=== PATIENT | female | born 1975 | race American Indian/Alaskan Native ===

== ENCOUNTER 2017-11-04 22:21 | Emergency (ER) | payer OTHER ==
[2017-11-04] MEDS ORDERED: Sodium Chloride 0.9% 10 ML Syringe FLUSH PRN (23:00)
[2017-11-04] MEDS ORDERED: Sodium Chloride 0.9% 1,000 ML IV STA (23:00)
[2017-11-04] MEDS ORDERED: Ondansetron 4 MG/2 ML SDV IVPUSH ONE (23:00)
[2017-11-04] MEDS ORDERED: Albuterol/Ipratropium 3.0-0.5 MG/3 ML Neb Soln NEB ONE (23:02)
--- NOTE | 2017-11-04 23:07 | EDM.PDOC ---
ED HPI GENERAL MEDICAL PROBLEM - General Chief Complaint: Abdominal Pain Stated Complaint: RIGHT SIDE BACK PAIN/ABDOMINAL PAIN Time Seen by Provider: 11/04/17 22:53 Source of Information: Reports: Patient History Limitations: Reports: No Limitations - History of Present Illness INITIAL COMMENTS - FREE TEXT/NARRATIVE: The patient presents with a cough, fever, and epigastric pain. This started a few days ago with a cough and fever. She was seen in [place] and diagnosed with bronchitis and she was not given any prescriptions. She has continued to cough and now she has epigastric pain with nausea and vomiting. She also has bilateral flank pain. She had gastric bypass back in 2007. She has no gallbladder or appendix. She has no dysuria or hematuria. Onset: Gradual Duration: Day(s): Location: Reports: Abdomen Quality: Reports: Sharp Severity: Moderate Improves with: Reports: None Worsens with: Reports: None Associated Symptoms: Reports: Cough, Fever/Chills, Nausea/Vomiting. Denies: Headaches, Shortness of Breath Epigastric Pain Score (Numeric/FACES): 7 - Related Data Allergies Allergy/AdvReac Type Severity Reaction Status Date / Time amoxicillin Allergy Itching Verified 11/04/17 22:34 avocado Allergy Swollen Verified 11/04/17 22:34 Eyes Home Meds: Home Meds levETIRAcetam [Keppra] 500 mg PO BID 11/04/17 [History] Azithromycin [IJD: Azithromycin] 250 mg PO DAILY #4 tab 11/05/17 [Rx] Codeine/Promethazine [Phenergan with Codeine] 5 - 10 ml PO Q6HR PRN #300 ml [Rx] Past Medical History - Past Surgical History GI Surgical History: Reports: Appendectomy, Cholecystectomy Other GI Surgeries/Procedures: gastric bypass Social & Family History - Tobacco Use Smoking Status *Q: Never Smoker Second Hand Smoke Exposure: No - Caffeine Use Caffeine Use: Reports: Coffee - Recreational Drug Use Recreational Drug Use: No ED ROS GENERAL - Review of Systems Review Of Systems: See Below Constitutional: Reports: Fever, Chills HEENT: Reports: No Symptoms Respiratory: Reports: Shortness of Breath, Cough Cardiovascular: Reports: No Symptoms Endocrine: Reports: No Symptoms GI/Abdominal: Reports: Abdominal Pain, Diarrhea (once), Nausea, Vomiting : Reports: No Symptoms Musculoskeletal: Reports: No Symptoms ED EXAM, GI/ABD - Physical Exam Exam: See Below Exam Limited By: No Limitations General Appearance: Alert, No Apparent Distress Ears: Normal External Exam Nose: Normal Inspection Head: Atraumatic, Normocephalic Neck: Normal Inspection Respiratory/Chest: No Respiratory Distress, Lungs Clear, Normal Breath Sounds, Decreased Breath Sounds Cardiovascular: Regular Rate, Rhythm, No Edema, No Murmur GI/Abdominal Exam: Soft, No Organomegaly, No Mass, Tender (Moderate to the epigastric region) Back Exam: Normal Inspection Extremities: Normal Inspection Course - Vital Signs Last Recorded V/S: Last Vital Signs Temp 97.3 F 11/04/17 22:30 Pulse 70 11/04/17 22:30 Resp 22 H 11/04/17 22:30 BP 135/72 11/04/17 22:30 Pulse Ox 96 11/04/17 22:30 - Orders/Labs/Meds Orders: Active Orders 24 hr Category Date Time Status Peripheral IV Care [RC] . DIRECTED Care 11/04/17 23:00 Active RT Aerosol Therapy [RC] ASDIRECTED Care 11/04/17 23:02 Active Abdomen Pelvis w Cont [CT] Stat Exams 11/04/17 23:00 Taken Chest 2V [CR] Stat Exams 11/04/17 23:00 Taken UA W/MICROSCOPIC [URIN] Stat Lab 11/04/17 23:18 Ordered Sodium Chloride 0.9% [Saline Flush] Med 11/04/17 23:00 Active 10 ml FLUSH ASDIRECTED PRN ED Antiemetic Medication Reflex [OM.PC] Stat Oth 11/04/17 23:00 Ordered Peripheral IV Insertion Adult [OM.PC] Stat Oth 11/04/17 23:00 Ordered Medication Orders Sodium Chloride (Saline Flush) 10 ml FLUSH ASDIRECTED PRN PRN Reason: Keep Vein Open Last Admin: 11/04/17 23:17 Dose: 10 ml Labs: Laboratory Tests 11/04/17 11/04/17 11/04/17 Range/Units 23:18 23:18 23:18 WBC 5.24 (3.98-10.04) K/mm3 RBC 4.50 (3.98-5.22) M/mm3 Hgb 13.7 (11.2-15.7) gm/L Hct 40.3 (34.1-44.9) % MCV 89.6 (79.4-94.8) fl MCH 30.4 (25.6-32.2) pg MCHC 34.0 (32.2-35.5) g/dl RDW Std Deviation 41.6 (36.4-46.3) fL Plt Count 353 (182-369) K/mm3 MPV 9.3 L (9.4-12.3) fl Neut % (Auto) 73.1 H (34.0-71.1) % Lymph % (Auto) 19.8 (19.3-51.7) % [place] % (Auto) 5.9 (4.7-12.5) % Eos % (Auto) 0.6 L (0.7-5.8) Baso % (Auto) 0.4 (0.1-1.2) % Neut # (Auto) 3.83 (1.56-6.13) K/mm3 Lymph # (Auto) 1.04 L (1.18-3.74) K/mm3 [place] # (Auto) 0.31 (0.24-0.36) K/mm3 Eos # (Auto) 0.03 L (0.04-0.36) K/mm3 Baso # (Auto) 0.02 (0.01-0.08) K/mm3 Sodium 140 (136-145) mEq/L Potassium 3.3 L (3.5-5.1) mEq/L Chloride 106 (98-107) mEq/L Carbon Dioxide 28 (21-32) mEq/L Anion Gap 9.3 (5-15) BUN 11 (7-18) mg/dL Creatinine 0.8 (0.55-1.02) mg/dL Est Cr Clr Drug Dosing 81.59 mL/min Estimated GFR (MDRD) > 60 (>60) mL/min BUN/Creatinine Ratio 13.8 L (14-18) Glucose 107 H (74-106) mg/dL Calcium 8.7 (8.5-10.1) mg/dL Total Bilirubin 0.3 (0.2-1.0) mg/dL AST 20 (15-37) U/L ALT 18 (14-59) U/L Alkaline Phosphatase 95 (46-116) U/L Total Protein 7.3 (6.4-8.2) g/dl Albumin 3.5 (3.4-5.0) g/dl Globulin 3.8 gm/dL Albumin/Globulin Ratio 0.9 L (1-2) Lipase 164 (73-393) U/L HCG, Qual (NEGATIVE) Urine Color Yellow (Yellow) Urine Appearance Clear (Clear) Urine pH 5.5 (5.0-8.0) Ur Specific [place] > or = 1.030 (1.005-1.030) Urine Protein 1+ H (Negative) Urine Glucose (UA) Negative (Negative) Urine Ketones 2+ H (Negative) Urine Occult Blood Negative (Negative) Urine Nitrite Negative (Negative) Urine Bilirubin 1+ H (Negative) Urine Urobilinogen 1.0 (0.2-1.0) Ur Leukocyte Esterase Negative (Negative) Urine RBC 0-5 (0-5) /hpf Urine WBC 0-5 (0-5) /hpf Ur Epithelial Cells 0-5 (0-5) /hpf Urine Bacteria Few (FEW) /hpf Urine Mucus Many H (FEW) /hpf 11/04/17 Range/Units 23:18 WBC (3.98-10.04) K/mm3 RBC (3.98-5.22) M/mm3 Hgb (11.2-15.7) gm/L Hct (34.1-44.9) % MCV (79.4-94.8) fl MCH (25.6-32.2) pg MCHC (32.2-35.5) g/dl RDW Std Deviation (36.4-46.3) fL Plt Count (182-369) K/mm3 MPV (9.4-12.3) fl Neut % (Auto) (34.0-71.1) % Lymph % (Auto) (19.3-51.7) % [place] % (Auto) (4.7-12.5) % Eos % (Auto) (0.7-5.8) Baso % (Auto) (0.1-1.2) % Neut # (Auto) (1.56-6.13) K/mm3 Lymph # (Auto) (1.18-3.74) K/mm3 [place] # (Auto) (0.24-0.36) K/mm3 Eos # (Auto) (0.04-0.36) K/mm3 Baso # (Auto) (0.01-0.08) K/mm3 Sodium (136-145) mEq/L Potassium (3.5-5.1) mEq/L Chloride (98-107) mEq/L Carbon Dioxide (21-32) mEq/L Anion Gap (5-15) BUN (7-18) mg/dL Creatinine (0.55-1.02) mg/dL Est Cr Clr Drug Dosing mL/min Estimated GFR (MDRD) (>60) mL/min BUN/Creatinine Ratio (14-18) Glucose (74-106) mg/dL Calcium (8.5-10.1) mg/dL Total Bilirubin (0.2-1.0) mg/dL AST (15-37) U/L ALT (14-59) U/L Alkaline Phosphatase (46-116) U/L Total Protein (6.4-8.2) g/dl Albumin (3.4-5.0) g/dl Globulin gm/dL Albumin/Globulin Ratio (1-2) Lipase (73-393) U/L HCG, Qual Negative (NEGATIVE) Urine Color (Yellow) Urine Appearance (Clear) Urine pH (5.0-8.0) Ur Specific [place] (1.005-1.030) Urine Protein (Negative) Urine Glucose (UA) (Negative) Urine Ketones (Negative) Urine Occult Blood (Negative) Urine Nitrite (Negative) Urine Bilirubin (Negative) Urine Urobilinogen (0.2-1.0) Ur Leukocyte Esterase (Negative) Urine RBC (0-5) /hpf Urine WBC (0-5) /hpf Ur Epithelial Cells (0-5) /hpf Urine Bacteria (FEW) /hpf Urine Mucus (FEW) /hpf Meds: Medications Generic Name Dose Route Start Last Admin Trade Name Freq PRN Reason Stop Dose Admin Sodium Chloride 10 ml 11/04/17 23:00 11/04/17 23:17 Saline Flush FLUSH 10 ml ASDIRECTED PRN Administration Keep Vein Open Discontinued Medications Generic Name Dose Route Start Last Admin Trade Name Freq PRN Reason Stop Dose Admin Albuterol/Ipratropium 3 ml 11/04/17 23:02 11/04/17 23:22 Duoneb 3.0-0.5 Mg/3 Ml NEB 11/04/17 23:03 3 ml ONETIME ONE Administration Sodium Chloride 1,000 mls @ 1,000 mls/hr 11/04/17 23:00 11/04/17 23:17 Normal Saline IV 11/04/17 23:59 1,000 mls/hr .BOLUS STA Administration Ondansetron HCl 4 mg 11/04/17 23:00 11/04/17 23:17 Zofran IVPUSH 11/04/17 23:01 4 mg ONETIME ONE Administration - Re-Assessments/Exams Free Text/Narrative Re-Assessment/Exam: 11/04/17 23:06 I ordered an IV NS 1L bolus, zofran 4mg IV, duoneb, labs, UA, CT of the abdomen and pelvis and CXR. 11/05/17 01:10 Her CXR does not show any infiltrates. Her CBC looks good. Her CMP shows a low K at 3.3. Her HCG is negative. Her lipase is negative. Her UA does not show any UTI. I am waiting for the CT report. 11/05/17 01:[address] shows a 7cm right ovarian cyst. Six-week mid cycle followup pelvic ultrasound is suggested. She has bronchitis. I will get her on zithromax, phenergan with codeine and some albuterol. Departure - Departure Time of Disposition: 01:45 Disposition: Home, Self-Care 01 Condition: Good Clinical Impression: Bronchitis, Right ovarian cyst Abdominal pain Qualifiers: Abdominal location: epigastric Qualified Code(s): R10.13 - Epigastric pain - Discharge Information Prescriptions: Codeine/Promethazine [Phenergan with Codeine] 5 - 10 ml PO Q6HR PRN #300 ml PRN Reason: Cough Azithromycin [IJD: Azithromycin] 250 mg PO DAILY #4 tab Referrals: Krystyna Rodríguez MD [Primary Care Provider] - Forms: ED Department Discharge Additional Instructions: Take the zithromax daily for 4 days. Use the albuterol inhaler 2 puffs every 4 to 6 hours as needed for shortness of breath. Take the phenergan with codeine 5 to 10mls every 6 hours as needed for cough. Follow up with your doctor. You have a 7cm right ovarian cyst. - My Orders Last 24 Hours: My Active Orders 11/04/17 23:00 Peripheral IV Care [RC] . DIRECTED Abdomen Pelvis w Cont [CT] Stat Chest 2V [CR] Stat Sodium Chloride 0.9% [Saline Flush] 10 ml FLUSH ASDIRECTED PRN ED Antiemetic Medication Reflex [OM.PC] Stat Peripheral IV Insertion Adult [OM.PC] Stat 11/04/17 23:02 RT Aerosol Therapy [RC] ASDIRECTED 11/04/17 23:18 UA W/MICROSCOPIC [URIN] Stat - Assessment/Plan Last 24 Hours: My Active Orders 11/04/17 23:00 Peripheral IV Care [RC] . DIRECTED Abdomen Pelvis w Cont [CT] Stat Chest 2V [CR] Stat Sodium Chloride 0.9% [Saline Flush] 10 ml FLUSH ASDIRECTED PRN ED Antiemetic Medication Reflex [OM.PC] Stat Peripheral IV Insertion Adult [OM.PC] Stat 11/04/17 23:02 RT Aerosol Therapy [RC] ASDIRECTED 11/04/17 23:18 UA W/MICROSCOPIC [URIN] Stat
[2017-11-05] MEDS ORDERED: Albuterol 6.7 GM Inhaler INH ONE (01:40)
[2017-11-05] MEDS ORDERED: Codeine/Promethazine 10-6.25 MG/5 ML Syrup 5 ML UD Cup PO ONE (01:41)
[2017-11-05] MEDS ORDERED: Azithromycin 250 MG Tab PO ONE (01:42)
--- NOTE | 2017-11-05 07:37 | CR ---
Chest: Two views of the chest were obtained. Comparison: No prior chest x-ray. Heart size and mediastinum are normal. Lungs are clear. Bony structures are within normal limits. Impression: 1. Nothing acute is seen on two-view chest x-ray. Diagnostic code #1
--- NOTE | 2017-11-05 07:37 | CT ---
CT abdomen and pelvis Technique: Multiple axial sections were obtained from above the dome of the diaphragm inferiorly through the pubic symphysis. Intravenous and oral contrast was utilized. Delayed images were also obtained through the bladder. Comparison: Prior CT abdomen and pelvis exam of 11/14/09. Findings: Small portion of the visualized lung bases show nothing acute. Liver shows no focal parenchymal abnormality. Surgical clips are seen from prior cholecystectomy. Small hiatal hernia is seen. Previous gastric bypass surgery is noted. Spleen appears within normal limits. Adrenal glands show no nodule. Kidneys show symmetric contrast enhancement. Very minimal cortical lesion is seen within the lower left kidney measuring about 3 mm in size which is too small to characterize by Hounsfield unit measurements most likely represents minimal cortical cyst. Kidneys otherwise are unremarkable. Pancreas appears within normal limits. Aorta shows no aneurysmal dilatation. No retroperitoneal adenopathy or mesenteric abnormalities are seen. Appendix is not visualized with certainty. Cyst is seen within the right adnexa measuring about 7.0 cm in size. Minimal free fluid is seen within the pelvis most likely due to cyst leakage. No inflammatory change is seen. Delayed images show contrast within both distal ureters and within the bladder. Scattered degenerative change is noted throughout the spine. Small fat-containing umbilical hernia is incidentally noted. Impression: 1. 7.0 cm cyst within the right adnexa. Recommend follow-up ultrasound in 3-4 months. 2. Small amount of fluid within the pelvis most likely due to cyst leakage. 3. Other incidental findings. Nothing acute is otherwise seen. Diagnostic code #9 I agree with preliminary report from [facility], finalized at 11/05/17, 2:26 AM Central Time
== END 2017-11-05 01:50 | disposition home or self-care (01) ==
LOC: JD.ED 22:21
DX: N83.201 Unspecified ovarian cyst, right side (principal); J40 Bronchitis, not specified as acute or chronic; Z88.1 Allergy status to other antibiotic agents; Z91.018 Allergy to other foods
CPT/HCPCS: 36415; 71046; 74177; 80053; 81001; 83690; 84703; 85025; 94640; 94664; 96361; 96374; 99285; A9270; J2405; J7040; J7050; 99284